=== PATIENT | male | born 1975 | race Caucasian/White ===

== ENCOUNTER 2024-08-03 22:55 | Emergency (ER) | payer OTHER, SELFPAY ==
[2024-08-03 22:57] VITALS: BP 119/79
[2024-08-03 23:18] VITALS: BP 117/76
[2024-08-03 23:19] VITALS: BMI 23.3
[2024-08-03] MEDS: NSS 500 IV (23:24)
--- NOTE | 2024-08-03 23:40 | ED.GENMED ---
History of Present Illness
General
Chief Complaint: Abdominal Pain
Source: patient
Exam Limitations: none
Time Seen by Provider: 08/03/24 23:04
History of Present Illness
History of Present Illness:
This is a 48 year old male that comes in with c/o right lower abd pain. States that he has pain in the right lower quadrant. States that this has been going on for a week. States that it comes and goes. States that he did vomit 4 days ago but not
since then. Denies any fever, chills, chest pain, SOB, nausea, vomiting, diarrhea, headache, dizziness, urinary burning.
Past History
Past History
ED Past Medical History: Other (Back pain, Diverticulitis, ); Negative Asthma, HTN, Hypercholesterolemia or NIDDM
ED Past Surgical History: Orthopedic (back surgery)
Social History
Tobacco: Non-smoker
Alcohol: None
Personal: (Seperated)
Living: alone
Review of Systems
Review of Systems
All Other Systems: ROS reviewed and negative except as documented in HPI and ROS
Constitutional: Reports no symptoms; Denies fever or chills
EENT: Reports no symptoms
Respiratory: Reports no symptoms; Denies cough or trouble breathing
Cardiac: Reports no symptoms; Denies chest pain
ABD/GI: Reports abdominal pain; Denies nausea, vomiting or diarrhea
: Reports no symptoms; Denies dysuria, frequency or urgency
Musculoskeletal: Reports no symptoms
Skin: Reports no symptoms
Neurological: Reports no symptoms; Denies dizzy or headache
Psychiatric: Reports no symptoms
Phy Exam
General Physical Exam
General Presentation: no apparent distress
General age: appears stated age
General Skin: warm and dry
General Habitus: normal
General Mental: alert
General Hydration: appears well hydrated
ENT Exam
ENT Exam: TM's normal, pharynx normal and neck supple
Eye Exam
Eye Exam: EOMI
Cardiovascular Exam
Cardiovascular Exam: regular rate/rhythm, no edema, no murmur and normal peripheral pulses
Pulmonary Exam
Pulmonary Exam: lungs clear, no respiratory distress, no rales, chest non tender, no crackles, no rhonchi, no wheezing and no cough
Gastrointestinal Exam
Gastrointestinal Exam: normal bowel sounds, soft, no organomegaly, no pulsatile mass, non distended and tender (Right lower abd tenderness slightly with palpation)
Musculoskeletal Exam
Musculoskeletal Exam: full ROM and no edema
Skin Exam
Skin Exam: normal color, warm/dry, no rash and no petechia
Psychiatric Exam
Psychiatric Exam: normal mood/affect
Course
Orders/Labs/Results
Orders:
Orders
08/03/24 23:19
0.9% Sodium Chloride 500 ml [Nss] 500 ml IV BOLUS
08/03/24 23:24
Complete Blood Count/With Diff Urgent
Comprehensive Metabolic Panel Urgent
Urinalysis Reflex To Culture Urgent
Date Specimen was Collected: 08/03/24
Time Specimen was Collected: 23:19
08/04/24 00:00
CT Abd/pelvis W Iv Cont Urgent
Reason For Exam: Right sided abd pain
Abnormal Lab Results
08/03/24
23:24
BUN 21 H mg/dl
(9-20)
Glucose 122 H mg/dl
(70-99)
08/03/24 23:24
08/03/24 23:24
Vital Signs
Initial and Last Documented VS:
Initial Vital Signs
Temp Pulse Resp BP Pulse Ox
97.7 F 78 16 119/79 98
08/03/24 22:57 08/03/24 22:57 08/03/24 22:57 08/03/24 22:57 08/03/24 22:57
Last Documented Vital Signs
Temp Pulse Resp BP Pulse Ox
97.7 F 78 16 103/77 98
08/03/24 22:57 08/03/24 22:57 08/03/24 22:57 08/04/24 00:00 08/03/24 22:57
MDM/Problems Addressed
Differential Diagnosis Includes:
Appendicitis, Renal calculus
MDM/Problems Addressed:
This is a 48 year old male that comes in with c/o right lower abd pain. States that this started a week ago and comes and goes. States that he vomited 4 days ago but not since then.
Will check labs and get CT scan.
back into see patient. Explained that his blood work shows a little dehydrated. Encouraged patient to increase his water intake to 8-8oz glasses daily. CT scan is normal. Explained that he may have pulled a groin muscle and can use Tylenol or
Ibuprofen for pain. Follow up with the family doctor. Return with any concerns.
Chronic conditions affecting care:
NA
Acute Exacerbation and/or Progression of Chronic Illness:
NA
*Radiology
Radiology exam reviewed: radiology read reviewed (CT night hawk- No acute findings. No bowel inflammation or obstruction. Colonic diverticulosis without evidence of diverticulitis. Normal appendix. Unremarkable CT appearance of the gallbladder and
pancreas. No obstructive uropathy. No suspicious free fluid or free air. Probable small amount of ) and other (CT cont- scarring or atelectasis at the lung bases. Postsurgical changes in the spine .)
*Pulse Oximetry
Patient hypoxic: no
*EKG
Interpreted by ED Provider?: NA
Rate: EKG- N/A
*Toll Patrolman Interpretation
Rate: Toll Patrolman- N/A
*Critical Care Note
Total Time (30-74mins, 75-104mins- exclusive of procedures): Not Applicable
ED Attending Note
-
Portions of this chart may have been created with voice recognition software.� Occasional wrong word or��sound alike� substitutions may have occurred due to the inherent limitations of voice recognition software.
Discharge Plan
Departure
Patient Disposition: Home (Routine Discharge)
Date of Disposition: 08/04/24
Time of Disposition: 01:14
Patient with high blood pressure during this ER visit?: No
Condition: Good
Covid-19: Not Applicable
Discharge Problem:
Abdominal pain, RLQ (right lower quadrant)
Instructions: Abdominal Pain
Referrals:
Marcelino Mathis, DO [Family Provider] - Call in 1-3 days for appt
Activity Restrictions/Additional Instructions:
As discussed, your blood work shows very slight Dehydration. Please increase your water intake to 8-8oz glasses daily. Your CT is negative for any acute process. You may have pulled a groin muscle. You may use Tylenol or Ibuprofen for pain. Follow
up with the family doctor as needed. IF YOU HAVE ANY OTHER CONCERNS PLEASE RETURN TO THE EMERGENCY ROOM.
Interventions
Interventions:
*Risk Screen - Suicide Last Done: 08/03/24 22:57
*General Assessment Last Done: 08/03/24 22:57
*Neglect/Abuse Screening Last Done: 08/03/24 22:57
ED- Fall Risk Assessment Last Done: 08/03/24 23:15
*ED COVID-19 Vaccine History Last Done: 08/03/24 22:57
WQ-[facility]-Onatrsiv[facility] Assessment Last Done: 08/03/24 23:14
Discharge Date and Time
Print Language: GREEK
[2024-08-03 23:42] LABS: Urine Albumin Negative (Neg - Trace); Urine Bilirubin Negative (Negative); Urine Character Clear (Clear); Urine Color Yellow; Urine Glucose Negative (Negative); Urine Ketone Negative (Negative); Urine Leukocyte Negative (Negative); Urine Nitrite Negative (Negative); Urine Occult Blood Negative (Negative); Urine Specific Gravity 1.025 (<1.030); Urine Urobilinogen Negative (Neg - 1+)
[2024-08-03 23:48] LABS: % Basophils 0.6 % (0-2); % Eosinophils 5.4 % (0-6); % Immature Granulocytes 0.4 % (0-0.5); % Lymphocytes 28.7 % (20.5-51.1); % Monocytes 7.5 % (1.7-9.3); % Neutrophils 57.4 % (42.2-75.2); Absolute Basophils 0.1 10^3/uL (0-0.2); Absolute Eosinophils 0.4 10^3/uL (0-0.7); Absolute Lymphocytes 2.3 10^3/uL (1.2-3.4); Absolute Monocytes 0.6 10^3/uL (0.1-0.6); Absolute Neutrophils 4.6 10^3/uL (1.4-6.5); Hematocrit 42.2 % (39.0-52.0); Hemoglobin 14.4 g/dL (13.0-18.0); Mean Corp Hgb Conc. 34.1 g/dL (33.0-37.0); Mean Corpuscular Hgb 30.1 pg (27.0-31.0); Mean Corpuscular Volume 88.1 fL (80.0-94.0); Mean Platelet Volume 9.6 fL (7.4-10.4); Nucleated Red Blood Cells % 0 % (-); Platelet Count 205 10^3/uL (130-400); Red Blood Cell Count 4.79 10^6/uL (4.70-6.10); Red Cell Dist. Width 13.1 % (11.5-14.5); White Blood Cell Count 8.1 10^3/uL (4.8-10.8)
[2024-08-03 23:52] LABS: ALT (SGPT) 23 U/L (0-50); AST (SGOT) 24 U/L (17-59); Albumin 4.3 g/dl (3.5-5.0); Alkaline Phosphatase 43 U/L (38-126); Blood Urea Nitrogen 21 mg/dl (9-20); Calcium 9.1 mg/dl (8.4-10.2); Carbon Dioxide 29 mmol/L (22-30); Chloride 102 mmol/L (98-107); Estimated Creatinine Clearance 99 ml/min; Glucose 122 mg/dl (70-99); Sodium 136 mmol/L (135-145); Total Bilirubin 0.3 mg/dl (0.2-1.3); Total Protein 6.8 g/dl (6.3-8.2); eGFR > 60.00
[2024-08-04] VITALS: BP 103/77
[2024-08-04 00:45] VITALS: BP 110/72
[2024-08-04 01:00] VITALS: BP 109/71
== END 2024-08-04 01:27 | disposition home or self-care (01) ==
LOC: EMR 22:55
PROVIDERS: Clinical Nurse Specialist Family Health; EMERGENCY PHYSICIAN Emergency Medicine; FAMILY PHYSICIAN Family Medicine
DX: E86.0 Dehydration (principal); R10.31 Right lower quadrant pain
CPT/HCPCS: 96360; 99284; 74177; 80053; 81003; 85025; Q9967

== ENCOUNTER 2024-08-21 21:20 | Emergency (ER) | payer OTHER, SELFPAY ==
[2024-08-21 21:24] VITALS: BP 104/71
[2024-08-21 21:36] LABS: % Basophils 0.8 % (0-2); % Eosinophils 6.9 % (0-6); % Immature Granulocytes 0.3 % (0-0.5); % Lymphocytes 36.2 % (20.5-51.1); % Monocytes 8.7 % (1.7-9.3); % Neutrophils 47.1 % (42.2-75.2); Absolute Basophils 0.1 10^3/uL (0-0.2); Absolute Eosinophils 0.5 10^3/uL (0-0.7); Absolute Lymphocytes 2.4 10^3/uL (1.2-3.4); Absolute Monocytes 0.6 10^3/uL (0.1-0.6); Absolute Neutrophils 3.1 10^3/uL (1.4-6.5); Hematocrit 43.4 % (39.0-52.0); Hemoglobin 14.9 g/dL (13.0-18.0); Mean Corp Hgb Conc. 34.3 g/dL (33.0-37.0); Mean Corpuscular Hgb 30.2 pg (27.0-31.0); Mean Corpuscular Volume 87.9 fL (80.0-94.0); Mean Platelet Volume 9.2 fL (7.4-10.4); Nucleated Red Blood Cells % 0 % (-); Platelet Count 229 10^3/uL (130-400); Red Blood Cell Count 4.94 10^6/uL (4.70-6.10); Red Cell Dist. Width 13.1 % (11.5-14.5); White Blood Cell Count 6.6 10^3/uL (4.8-10.8)
[2024-08-21 21:53] LABS: ALT (SGPT) 26 U/L (0-50); AST (SGOT) 29 U/L (17-59); Albumin 4.3 g/dl (3.5-5.0); Alkaline Phosphatase 57 U/L (38-126); Blood Urea Nitrogen 19 mg/dl (9-20); Calcium 9.1 mg/dl (8.4-10.2); Carbon Dioxide 30 mmol/L (22-30); Chloride 99 mmol/L (98-107); Glucose 138 mg/dl (70-99); Lipase 67 U/L (23-300); Sodium 138 mmol/L (135-145); Total Bilirubin 0.4 mg/dl (0.2-1.3); Total Protein 6.8 g/dl (6.3-8.2); eGFR > 60.00
--- NOTE | 2024-08-21 23:41 | ED.GENMED ---
History of Present Illness
General
Chief Complaint: Abdominal Pain
Time Seen by Provider: 08/21/24 23:41
History of Present Illness
History of Present Illness:
TIME OF INITIAL ENCOUNTER: 11:45 PM
HPI: Patient presents with abdominal pain. This been ongoing for the past month or so. He has no associated nausea vomiting or diarrhea. When he coughs or sneezes, he notices a bulge in the right inguinal region. The pain that he is experiencing
has been slowly worsening. It is not necessarily severe though. He does not have any ongoing bulging. He has not followed up with a surgeon.
EXAM:
GENERAL: Well appearing in no distress
HEENT: Moist oral mucosa
CARDIOVASCULAR: No murmurs, normal heart rate, regular rhythm, No chest wall tenderness
PULMONARY: No respiratory distress, breath sounds are clear and equal
ABDOMEN: Soft with no peritoneal signs, no tenderness, there is a palpable soft hernia just superior to the right inguinal region
NEUROLOGIC: Excellent strength all extremities, no coordination deficits
PSYCHIATRIC: Appropriate mental status, normal insight and judgement
EXTREMITIES: Nontender, no edema, moves all extremities equally
SKIN: No rash, no lesions
NUMBER AND COMPLEXITY OF PROBLEMS ADDRESSED AT THE ENCOUNTER
� Chronic conditions affecting care: No significant past medical history other than back pain
� Acute Exacerbation and/or Progression of Chronic Illness: This is an acute problem
� Differential Diagnosis includes: Inguinal hernia, ventral wall hernia, doubt appendicitis / mesenteric adenitis as the patient has a bulge in the inguinal region and pain is located at that area as well�no abdominal pain
AMOUNT AND/OR COMPLEXITY OF DATA TO BE REVIEWED AND ANALYZED
� I performed an independent evaluation of and my interpretation is:
EKG:
CT:
X-rays:
Laboratory Studies: White count 6.6, hemoglobin 14.9, chemistries including lipase and LFTs are normal
Other:
� Review of other/old records: I reviewed the CT report from 08/04/2024. This showed no acute inflammatory process. Appendix was identified and was normal. A tiny fat-containing umbilical hernia was noted. Urinalysis last
visit was normal.
� Clinical information was obtained by an independent historian: None needed
� Prescriptions/Medications Considered but not given:
� Further testing considered but not performed: Considered CT imaging however see above
RISK OF COMPLICATIONS AND/OR MORBIDITY OR MORTALITY OF PATIENT MANAGEMENT
� Social determinants of health affecting care: Lives at home
� Discussion with other providers:
� Escalation of care including admission/observation vs risk of discharge considered: The patient is very comfortable in appearance. Strongly suspect right inguinal hernia�no evidence for incarceration�recommend outpatient
follow-up with Dr. Chanel. To return here if worse.
ANY OTHER UPDATES:
Past History
Past History
ED Past Medical History: Other (Back pain, Diverticulitis, ); Negative Asthma, HTN, Hypercholesterolemia or NIDDM
ED Past Surgical History: Orthopedic (back surgery)
Social History
Tobacco: Non-smoker
Alcohol: None
Personal: (Seperated)
Living: alone
Phy Exam
Physical Exam
Physical Exam:
See HPI
Course
Orders/Labs/Results
Orders:
Orders
08/21/24 21:31
Complete Blood Count/With Diff Urgent
Comprehensive Metabolic Panel Urgent
Lipase Urgent
Abnormal Lab Results
08/21/24
21:31
Eosinophils % 6.9 H %
(0-6)
Glucose 138 H mg/dl
(70-99)
08/21/24 21:31
08/21/24 21:31
Vital Signs
Initial and Last Documented VS:
Initial Vital Signs
Temp Pulse Resp BP Pulse Ox
36.7 C 82 20 104/71 97
08/21/24 21:24 08/21/24 21:24 08/21/24 21:24 08/21/24 21:24 08/21/24 21:24
Last Documented Vital Signs
Temp Pulse Resp BP Pulse Ox
36.7 C 69 18 122/75 99
08/21/24 21:24 08/22/24 00:25 08/22/24 00:25 08/22/24 00:25 08/22/24 00:25
*Critical Care Note
Total Time (30-74mins, 75-104mins- exclusive of procedures): Not Applicable
ED Attending Note
-
Portions of this chart may have been created with voice recognition software.� Occasional wrong word or��sound alike� substitutions may have occurred due to the inherent limitations of voice recognition software.
Discharge Plan
Departure
Patient Disposition: Home (Routine Discharge)
Date of Disposition: 08/22/24
Time of Disposition: 00:03
Patient with high blood pressure during this ER visit?: Yes
Discharge Problem:
Inguinal hernia
Instructions: Groin hernias
Referrals:
Marcelino Mathsi, [Family Provider] -
Sorin Chanel MD [Active] - Next open appointment
Stand Alone Forms: Return to Work
Activity Restrictions/Additional Instructions:
When you cough, I feel a hernia that bulges out in the right inguinal region. Therefore, I recommend you follow-up with surgeon such as Dr. Chanel. Please call his office tomorrow to arrange follow-up. Return here if worse or other concerns.
Interventions
Interventions:
*Risk Screen - Suicide Last Done: 08/22/24 00:19
*General Assessment Last Done: 08/21/24 21:24
*Neglect/Abuse Screening Last Done: 08/22/24 00:19
ED- Fall Risk Assessment Last Done: 08/22/24 00:19
*ED COVID-19 Vaccine History Last Done: 08/22/24 00:19
*Nursing Disposition Last Done: 08/22/24 00:25
TL-Idudnh-Ipdyzbblhz Assessment Last Done: 08/22/24 00:18
Discharge Date and Time
Discharge Date/Time: 08/22/24 00:25
Print Language: ISRAELI
[2024-08-22 00:25] VITALS: BP 122/75
== END 2024-08-22 00:25 | disposition home or self-care (01) ==
LOC: EMR 21:20
PROVIDERS: Emergency Medicine; EMERGENCY PHYSICIAN Emergency Medicine; FAMILY PHYSICIAN Family Medicine
DX: K40.90 Unilateral inguinal hernia, without obstruction or gangrene, not specified as recurrent (principal)
CPT/HCPCS: 99283; 80053; 83690; 85025